=== PATIENT | male | born 2000 | race Caucasian/White ===

== ENCOUNTER 2024-04-16 21:21 | Emergency (ER) | payer OTHER, SELFPAY ==
[2024-04-16 21:37] VITALS: BP 134/67; PULSE 84; RESP 15; TEMP 36.9; O2SAT 98
--- NOTE | 2024-04-17 00:41 | ED.WOUNDLAC ---
HPI - Wound/Laceration General Chief Complaint: Wound/Laceration Stated Complaint: lac to inside of mouth Time Seen by Provider: 04/16/24 23:43 Source: patient Mode of arrival: ambulatory Limitations: no limitations History of Present Illness HPI narrative: This is a 23-year-old male that presents to the emergency department for laceration to his lower lip. Reports he was playing softball tonight and fielding. A ball popped up and hit him in the mouth. Sustained a laceration to the inner, lower lip. He is unsure of his last tetanus vaccination. He did not lose consciousness. Denies vision changes, vomiting, numbness, weakness. Related Data Allergies Allergy/AdvReac Type Severity Reaction Status Date / Time No Known Allergies Allergy Verified 04/16/24 22:11 Review of Systems Review of Systems: CONSTITUTIONAL: Denies fever EYES: Denies visual changes GASTROINTESTINAL: Denies vomiting NEUROLOGIC: Denies numbness, or weakness. All systems reviewed & are unremarkable except as noted in HPI and below PMFSH Past Medical History Medical History (Updated 04/17/24 @ 00:51 by Joellen Mazariegos PA-C) No active medical problems Social History Social History (Updated 04/17/24 @ 00:52 by Joellen Mazariegos PA-C) Substance use: never Exam Narrative: GENERAL: Well-appearing, well-nourished, and in no acute distress. HEAD: Normocephalic. Small laceration to the inner lower lip which has started healing EYES: PERRLA and EOMI. ENT: Nares clear, no rhinorrhea or epistaxis. Mucous membranes moist. Oropharynx without tonsillar hypertrophy exudate or other lesions. Bilateral TMs pearly miller non-bulging NECK: Supple. No adenopathy or masses. CHEST: Clear to auscultation. No respiratory distress. No wheezes rales or rhonchi HEART: Regular rate and rhythm. No murmur heard. Normal peripheral pulses. EXTREMITIES: Normal range of motion. No edema. SKIN: Warm, dry, no rash. NEURO: No focal deficits. Alert and oriented x3. cranial nerves 2 through 12 grossly intact PSYCH: Normal mood and affect Course Course Emergency Course: Patient agrees with plan of care Vital Signs Vital signs: Vital Signs Temperature 98.5 F 04/16/24 21:37 Pulse Rate 84 04/16/24 21:37 Respiratory Rate 15 04/16/24 21:37 Blood Pressure 134/67 04/16/24 21:37 Pulse Oximetry 98 04/16/24 21:37 Oxygen Delivery Room Air 04/16/24 21:37 Temperature 98.5 F 04/16/24 21:37 Pulse Rate 84 04/16/24 21:37 Respiratory Rate 15 04/16/24 21:37 Blood Pressure 134/67 04/16/24 21:37 Pulse Oximetry 98 04/16/24 21:37 Oxygen Delivery Room Air 04/16/24 21:37 MDM - Wound/Laceration MDM Narrative Medical decision making narrative: Patient presents to the ER for a laceration to the inner lip. Reports he was hit by a softball when he was fielding. Unsure of last tetanus vaccination. He is neurologically intact. He did not lose consciousness. Denies vision changes, vomiting, numbness or weakness. Updated on tetanus vaccination. His wound did not require suturing. He was instructed to have further follow-up with his primary care provider. He was given warnings to return to the ER Differential Diagnosis Differential diagnosis: Likely laceration, abrasion and other (concussion) Critical Care Time Critical Care Time Critical Care Time: No Discharge Plan Discharge Clinical Impression: Laceration Head injury Qualifiers: Encounter type: initial encounter Qualified Code(s): S09.90XA - Unspecified injury of head, initial encounter Patient Disposition: Home, Self-Care Condition: Stable Instructions: Laceration (ED), Head Injury (ED) Additional Instructions: Return to the emergency department if you experience fever, chest pain, shortness of breath, vomiting, weakness, numbness, or any other symptoms that are concerning to you. Rest. Ice to the area. Tylenol or Ibuprofen as needed for pain Follow up with your de
[2024-04-17] MEDS: TETANUS,DIPHTHERIA,AC PERTUSSIS ADULT (0.5 ML) BOOSTRIX IM (00:50)
[2024-04-17 00:53] VITALS: BP 130/71; PULSE 86; RESP 14; O2SAT 97
== END 2024-04-17 00:55 | disposition home or self-care (01) ==
LOC: ANHED 04-17 00:50
PROVIDERS: Emergency Provider Physician Assistant
DX: S01.511A Laceration without foreign body of lip, initial encounter (principal); W21.03XA Struck by baseball, initial encounter; Z23 Encounter for immunization
CPT/HCPCS: 90471; 90715; 99282